=== PATIENT | female | born 1940 | race Caucasian/White ===

== ENCOUNTER 2016-05-27 11:06 | Day surgery (SDC) | payer MEDICARE ==
[2016-05-23 14:25] LABS: BASOPHILS 0.1 %; BASOPHILS ABSOLUTE 0.01 10/3/uL (0.0-0.16); EOSINOPHILS 1.9 %; EOSINOPHILS ABSOLUTE 0.16 10/3/uL (0.0-0.53); HEMATOCRIT 37.4 % (36.0-48.0); HEMOGLOBIN 11.6 g/dL (12.0-16.0); IMMATURE GRANULOCYTES 0.2 %; IMMATURE GRANULOCYTES ABSOLUTE 0.02 10/3/uL (0.0-0.11); LYMPHOCYTES 35.4 %; LYMPHOCYTES ABSOLUTE 2.99 10/3/uL (0.67-4.30); MEAN CORPUSCULAR HEMOGLOB 27.6 pg (26.0-34.0); MONOCYTES 5.8 %; MONOCYTES ABSOLUTE 0.49 10/3/uL (0.21-1.20); NEUTROPHILS 56.6 %; NEUTROPHILS ABSOLUTE 4.78 10/3/uL (2.02-8.40); RBC DISTRIBUTION WIDTH 15.4 % (12.0-16.0); RED CELL COUNT 4.21 10/6/uL (4.0-5.6); WHITE BLOOD CELLS 8.5 10/3/uL (4.5-10.5)
[2016-05-23 14:26] LABS: MANUAL DIFF NO %; MEAN CORPUSCULAR VOLUME 88.8 fL (80-100); PLATELET COUNT 359 10/3/uL (150-400)
[2016-05-23 14:43] LABS: BUN (BLOOD UREA NITROGEN) 22 MG/DL (6-23); CALCIUM, SERUM 9.5 MG/DL (8.5-10.4); CHLORIDE, SERUM 107 MMOL/L (96-112); CO2 (CARBON DIOXIDE) 28 MMOL/L (24-34); CREATININE 1.08 MG/DL (0.55-1.02); GFR AFRICAN AMERICAN 57 ML/MIN (>=60); GFR NON AFRICAN AMERICAN 49 ML/MIN (>=60); GLUCOSE, SERUM 96 MG/DL (60-99); POTASSIUM, SERUM 4.3 MMOL/L (3.5-5.3); SODIUM, SERUM 142 MMOL/L (135-148)
--- NOTE | ~2016-05-27 | OP ---
Record Of Operation [facility] [address] [place]. [address] NAME: MATTHEW JARRETT : 36 STATUS : [facility]#: [id number] AGE: 75 ADM/REG DATE : 05/27/16 MR#: [id number] REPORT SERV DATE: 06/02/16 DICTATED BY: ALVARO PARR DATE: 06/02/16 REPORT STATUS : Draft TRANSCRIBED BY: DANIEL DATE: 06/02/16 DATE OF PROCEDURE: 05/27/2016 PREOPERATIVE DIAGNOSIS: Postmenopausal bleeding. POSTOPERATIVE DIAGNOSIS: Multiple endometrial polyps. PROCEDURE: D and C, hysteroscopy with removal of multiple endometrial polyps. CPT code 18953. SURGEON: Alvaro Parr M.D. ESTIMATED BLOOD LOSS: 10 mL. FLUIDS IN: 300 mL crystalloid. COMPLICATIONS: None. ANESTHESIA: general with LMA. INDICATION AND FINDINGS: This is a 75-year-old female, who presents with postmenopausal bleeding. She was unable to tolerate a biopsy in the office. Therefore, she is being taken to the operating room for biopsy with D and C, hysteroscopy. She has a pessary in place which was removed. The cervix was easily visualized. Hysteroscope placed and she was found to have multiple polyps. The polyps were removed, sent to Pathology, and labeled appropriately. PROCEDURE IN DETAIL: The patient was taken to the operating room. She was placed in supine position for administration of general anesthesia. She was then placed in dorsal lithotomy position and prepped and draped in usual sterile fashion. Again, the pessary was removed, the cervix was easily visualized. The cervix was dilated using Abiodun dilators. Ultrasound was also used to confirm that we were dilating the cervix. She was noted to have a thickened endometrial stripe by ultrasound. The hysteroscope was placed revealing multiple endometrial polyps. A sharp curettage from both the cervix and endometrium was performed removing the endometrial polyps. All specimens were sent to Pathology and labeled appropriately. At the completion of the procedure the anesthesia was reversed. The patient was taken to the recovery room in stable condition. MACARIO/DANIEL Alvaro Parr M.D. / [id number] Record Of Operation [address] [place] [address] NAME: MATTHEW JARRETT : 36 STATUS : [facility] PAT#: [id number] AGE: 75 ADM/REG DATE : 05/27/16 MR#: [id number] REPORT SERV DATE: 06/02/16 DICTATED BY: ALAVRO PARR DATE: 06/02/16 REPORT STATUS : Draft TRANSCRIBED BY: MODL DATE: 06/02/16 CC: Branden Prieto M.D.
[~2016-05-27 11:06] MED LIST: ASAB PO; CADUET5 MG/10 MG PO; DEMA10T PO; LIPITOR20 PO; NORV5 PO; PEP20 PO; PLAVIX PO; PRILO PO; SYN075 PO; ULTRAM50 PO; [UNRECOGNIZED DRUG - REMARK]
== END 2016-05-27 18:17 | disposition home or self-care (01) ==
LOC: SDC 11:06
PROVIDERS: Obstetrics & Gynecology Gynecologic Oncology
PROC: 0UDB8ZZ Extraction of Endometrium, Via Natural or Artificial Opening Endoscopic (ICD-10-PCS; 2016-05-27)
PROC: 0UB98ZX Excision of Uterus, Via Natural or Artificial Opening Endoscopic, Diagnostic (ICD-10-PCS; principal; 2016-05-27 14:30)
DX: N72 Inflammatory disease of cervix uteri (principal); N84.0 Polyp of corpus uteri; M41.9 Scoliosis, unspecified; G89.29 Other chronic pain; M54.9 Dorsalgia, unspecified; E03.9 Hypothyroidism, unspecified; J32.9 Chronic sinusitis, unspecified; Z86.73 Personal history of transient ischemic attack (TIA), and cerebral infarction without residual deficits; Z79.899 Other long term (current) drug therapy; Z98.890 Other specified postprocedural states; Z90.49 Acquired absence of other specified parts of digestive tract
CPT/HCPCS: 71020; 76857; 76998; 80048; 85025; 88305; 93005; A9270-GY; J0690; J2270; J3010